=== PATIENT | female | born 1980 | race Caucasian/White ===

== ENCOUNTER 2017-12-05 12:27 | Outpatient (REF) | payer OTHER, SELFPAY ==
[2017-12-05 13:37] LABS: *AMPHETAMINES SCREEN URINE Negative (Negative); *BARBITURATES SCREEN URINE Negative (Negative); *BENZODIAZEPINES SCREEN URINE Negative (Negative); Cannabinoids THC Negative (Negative); Cocaine Screen,Urine Negative (Negative); METHADONE URINE SCREEN Negative (Negative); OPIATES URINE SCREEN Negative (Negative)
[2017-12-05 13:40] LABS: Tricyclic Antidepressants Negative (Negative)
[2017-12-06 14:51] LABS: Chlamydia Result Negative; GC Result Negative; Specimen Description URINE
[2017-12-09 07:24] LABS: Buprenorphine Negative; Norbuprenorphine Negative
== END 2017-12-05 12:28 ==
LOC: LBN 12:27
PROVIDERS: Advanced Practice Midwife; Visit Provider Advanced Practice Midwife
DX: Z34.91 Encounter for supervision of normal pregnancy, unspecified, first trimester (principal); Z11.3 Encounter for screening for infections with a predominantly sexual mode of transmission
CPT/HCPCS: 80307; 87491; 87591; 87086